=== PATIENT | female | born 1990 | race African-American/Black ===

== ENCOUNTER 2017-02-20 19:14 | Emergency (ER) | payer SELFPAY ==
[~2017-02-20] VITALS: Ht 167.6 cm; Wt 67.0 kg
[2017-02-20 22:10] VITALS: BP 129/61
== END 2017-02-20 22:52 | disposition home or self-care (01) ==
LOC: ER 19:15
DX: M25.561 Pain in right knee (principal); F17.210 Nicotine dependence, cigarettes, uncomplicated; F12.10 Cannabis abuse, uncomplicated
CPT/HCPCS: 81025; 93971; 99284; 99406

== ENCOUNTER 2017-12-23 18:42 | Emergency (ER) | payer MEDICAID, OTHER | END 2017-12-23 19:15 | disposition left against medical advice (07) | LOC: ER 18:51 | DX: Z53.21 Procedure and treatment not carried out due to patient leaving prior to being seen by health care provider (principal) ==

== ENCOUNTER 2018-10-29 00:13 | Emergency (ER) | payer MEDICAID ==
[~2018-10-29] VITALS: Ht 170.2 cm; Wt 73.0 kg
[2018-10-29 01:29] LABS: BASOPHILS % 0.5 % (0.0-2.0); EOSINOPHILS % 0.8 % (0.0-5.0); HEMATOCRIT. 40.3 % (36.0-48.0); HEMOGLOBIN. 13.6 g/dL (12.0-16.0); LYMPHOCYTES % 38.2 % (20.0-50.0); MEAN CORPUSCULAR HEMOGLOBIN 30.9 pg (28.0-32.0); MEAN CORPUSCULAR VOLUME 91.7 fL (81.0-99.0); MEAN PLATELET VOLUME 6.5 fl (7.4-10.4); MONOCYTES % 7.2 % (2.0-8.0); NEUTROPHILS % 53.3 % (40.0-76.0); PLATELET 428 x1000/uL (130-400); RED BLOOD CELL COUNT 4.39 mill/uL (4.2-5.4); RED CELL DISTRIBUTION WIDTH 14.1 % (11.6-14.6)
[2018-10-29 01:33] LABS: CHLORIDE 106 mEq/L (98-107)
[2018-10-29 02:02] LABS: ETHANOL BLOOD 425 mg/dL
[2018-10-29 05:03] VITALS: BP 123/94
== END 2018-10-29 09:13 | disposition home or self-care (01) ==
LOC: ER 00:13
DX: F10.121 Alcohol abuse with intoxication delirium (principal); Y90.8 Blood alcohol level of 240 mg/100 ml or more; E87.6 Hypokalemia; D47.3 Essential (hemorrhagic) thrombocythemia
CPT/HCPCS: 36415; 80053; 85025; 99283; G0482

== ENCOUNTER 2025-02-08 14:46 | Emergency (ER) | payer MEDICAID ==
[~2025-02-08] VITALS: Ht 167.6 cm; Wt 99.0 kg
[2025-02-08 14:56] VITALS: BP 144/97; TEMP 36.6; O2SAT 98
[2025-02-08 14:57] VITALS: PULSE 81; RESP 18; O2SAT 100
[2025-02-08 15:42] LABS: BASOPHILS % 1.1 % (0.0-2.0); EOSINOPHILS % 0.1 % (0.0-5.0); HEMOGLOBIN. 13.5 g/dL (12.0-16.0); LYMPHOCYTES % 23.2 % (20.0-50.0); MEAN CORPUSCULAR HEMOGLOBIN 29.2 pg (28.0-32.0); MEAN CORPUSCULAR HGB CONC 32.8 g/dL (31.0-37.0); MEAN PLATELET VOLUME 6.7 fl (7.4-10.4); MONOCYTES % 11.7 % (2.0-8.0); NEUTROPHILS % 63.9 % (40.0-76.0); PLATELET 438 x1000/uL (130-400); RED BLOOD CELL COUNT 4.61 mill/uL (4.2-5.4); RED CELL DISTRIBUTION WIDTH 14.6 % (11.6-14.6); WHITE BLOOD COUNT 6.8 x1000/uL (4.5-11.0)
[2025-02-08 15:46] LABS: CHLORIDE 98 mEq/L (98-107); POTASSIUM 3.9 mEq/L (3.5-5.1); SODIUM 133 mEq/L (136-145)
[2025-02-08 15:47] LABS: CARBON DIOXIDE 21 mEq/L (21-32)
[2025-02-08 15:48] LABS: CALCIUM 10.1 mg/dL (8.7-10.4)
[2025-02-08 15:52] LABS: CREATININE 0.7 mg/dL (0.6-1.0); ETHANOL BLOOD 10 mg/dL (<10); GLUCOSE 101 mg/dL (70-105)
[2025-02-08 15:53] LABS: UREA NITROGEN BLOOD 6 mg/dL (9-23)
[2025-02-08 15:54] LABS: ALANINE AMINOTRANSFERASE 37 IU/L (10-49); ASPARTATE AMINOTRANSFERASE 24 IU/L (<34); HCG SCREEN NEGATIVE
[2025-02-08 15:55] LABS: BILIRUBIN TOTAL 0.5 mg/dL (0.1-1.0); PROTEIN TOTAL 8.9 g/dL (6.0-8.3)
[2025-02-08 17:09] LABS: CLARITY URINE CLOUDY (CLEAR); COLOR URINE DARK YELLOW (YELLOW); GLUCOSE URINE NEGATIVE (NEGATIVE); KETONES URINE TRACE (NEGATIVE); LEUKOCYTE ESTERASE URINE TRACE (NEGATIVE); NITRITE URINE NEGATIVE (NEGATIVE); OCCULT BLOOD URINE NEGATIVE (NEGATIVE); PROTEIN URINE 1+ (NEGATIVE); SPECIFIC GRAVITY URINE 1.021 (1.005-1.030)
[2025-02-08 17:49] LABS: BACTERIA URINE TRACE; RBC URINE NONE SEEN /hpf (0-2); SQUAMOUS EPITHELIAL CELL URINE 1+ /lpf (RARE/1+)
== END 2025-02-08 17:03 | disposition left against medical advice (07) ==
LOC: ER 14:46
DX: R53.1 Weakness (principal); R42 Dizziness and giddiness; Z53.21 Procedure and treatment not carried out due to patient leaving prior to being seen by health care provider
CPT/HCPCS: 36415; 80053; 80320; 81003; 81025; 84703; 85025; 93005; 99284; G0480

== ENCOUNTER 2025-02-08 22:34 | Emergency (ER) | payer MEDICAID ==
[~2025-02-08] VITALS: Ht 177.8 cm; Wt 91.0 kg
[2025-02-08 22:44] VITALS: BP 144/92; PULSE 96; RESP 18; TEMP 36.9; O2SAT 99
== END 2025-02-09 00:56 | disposition left against medical advice (07) ==
LOC: ER 22:34
DX: F10.129 Alcohol abuse with intoxication, unspecified (principal); Z53.21 Procedure and treatment not carried out due to patient leaving prior to being seen by health care provider; Y90.9 Presence of alcohol in blood, level not specified

== ENCOUNTER 2025-02-25 08:34 | Emergency (ER) | payer MEDICAID, OTHER ==
[~2025-02-25] VITALS: Ht 172.7 cm; Wt 78.0 kg
[2025-02-25 09:11] LABS: BASOPHILS % 0.3 % (0.0-2.0); EOSINOPHILS % 0.2 % (0.0-5.0); HEMATOCRIT. 38.5 % (36.0-48.0); HEMOGLOBIN. 12.6 g/dL (12.0-16.0); LYMPHOCYTES % 22.2 % (20.0-50.0); MEAN CORPUSCULAR HEMOGLOBIN 29.2 pg (28.0-32.0); MEAN CORPUSCULAR HGB CONC 32.7 g/dL (31.0-37.0); MEAN CORPUSCULAR VOLUME 89.4 fL (81.0-99.0); MEAN PLATELET VOLUME 6.5 fl (7.4-10.4); MONOCYTES % 6.6 % (2.0-8.0); NEUTROPHILS % 70.7 % (40.0-76.0); PLATELET 429 x1000/uL (130-400); RED CELL DISTRIBUTION WIDTH 15.1 % (11.6-14.6); WHITE BLOOD COUNT 15.9 x1000/uL (4.5-11.0)
[2025-02-25 09:17] LABS: CHLORIDE 103 mEq/L (98-107); SODIUM 140 mEq/L (136-145)
[2025-02-25 09:19] LABS: CALCIUM 9.2 mg/dL (8.7-10.4); CARBON DIOXIDE 22 mEq/L (21-32)
[2025-02-25 09:20] LABS: POTASSIUM 2.8 mEq/L (3.5-5.1)
[2025-02-25 09:24] LABS: CREATININE 0.6 mg/dL (0.6-1.0); GLUCOSE 128 mg/dL (70-105)
[2025-02-25 09:25] LABS: ETHANOL BLOOD 186 mg/dL (<10)
[2025-02-25 09:26] LABS: ALANINE AMINOTRANSFERASE 28 IU/L (10-49); ALBUMIN 4.7 g/dL (3.2-4.8); ASPARTATE AMINOTRANSFERASE 28 IU/L (<34)
[2025-02-25 09:27] LABS: BILIRUBIN TOTAL 0.3 mg/dL (0.1-1.0); PROTEIN TOTAL 8.4 g/dL (6.0-8.3)
[2025-02-25 09:57] LABS: BILIRUBIN DIRECT < 0.1 mg/dL (<=3.0); PROTHROMBIN TIME 10.9 sec (9.6-11.0); UREA NITROGEN BLOOD < 5 mg/dL (9-23)
[2025-02-25] MEDS: SODIUM CHLORIDE 0.9% 1,000 ML IV ONE (10:02)
[2025-02-25] MEDS: MIDAZOLAM HCL 2 MG/2 ML VIAL IV ONE ×2 (10:02→10:17)
[2025-02-25] MEDS: KCL 20MEQ/100ML PREMIX 100 ML IV SCH (10:02)
[2025-02-25] MEDS: ONDANSETRON 4MG ODT PO ONE (10:02)
[2025-02-25 10:17] VITALS: O2SAT 98
[2025-02-25] MEDS: OLANZAPINE 10 MG/VIAL IM ONE (10:17)
[2025-02-25 10:22] LABS: TROPONIN I HIGH SENSITIVITY 4 ng/L (3.0-34)
[2025-02-25 10:23] LABS: CLARITY URINE CLOUDY (CLEAR); COLOR URINE YELLOW (YELLOW); GLUCOSE URINE NEGATIVE (NEGATIVE); KETONES URINE 2+ (NEGATIVE); LEUKOCYTE ESTERASE URINE NEGATIVE (NEGATIVE); NITRITE URINE NEGATIVE (NEGATIVE); OCCULT BLOOD URINE TRACE (NEGATIVE); PH URINE 6.5 (4.5-8.0); PROTEIN URINE 1+ (NEGATIVE); SPECIFIC GRAVITY URINE 1.012 (1.005-1.030)
[2025-02-25 10:27] LABS: UCG SCREEN NEGATIVE
[2025-02-25] MEDS: MAGNESIUM 1 G PREMIX 100 ML IV ONE (10:41)
[2025-02-25 10:49] LABS: SQUAMOUS EPITHELIAL CELL URINE 2+ /lpf (RARE/1+)
[2025-02-25 10:50] LABS: BACTERIA URINE TRACE
[2025-02-25 10:51] LABS: MUCUS URINE TRACE /lpf (< = 2+); RBC URINE 0-2 /hpf (0-2)
[2025-02-25 10:53] LABS: *AMPHETAMINES SCREEN URINE NEGATIVE (NEGATIVE); *BARBITURATES SCREEN URINE NEGATIVE (NEGATIVE); *BENZODIAZEPINES SCREEN URINE NEGATIVE (NEGATIVE); *COCAINE SCREEN URINE NEGATIVE (NEGATIVE); METHADONE URINE SCREEN NEGATIVE (NEGATIVE)
[2025-02-25 10:54] LABS: CANNABINOID URINE SCREEN PRESUMPTIVE POSITIVE (NEGATIVE); ECSTASY MDMA SCREEN URINE NEGATIVE (NEGATIVE); OPIATES URINE SCREEN NEGATIVE (NEGATIVE); PHENCYCLIDINE URINE SCREEN NEGATIVE (NEGATIVE)
[2025-02-25 12:08] LABS: CHLORIDE 104 mEq/L (98-107); POTASSIUM 3.1 mEq/L (3.5-5.1); SODIUM 140 mEq/L (136-145)
[2025-02-25 12:09] LABS: CARBON DIOXIDE 24 mEq/L (21-32)
[2025-02-25 12:10] LABS: CALCIUM 8.7 mg/dL (8.7-10.4)
[2025-02-25 12:14] LABS: CREATININE 0.6 mg/dL (0.6-1.0); GLUCOSE 101 mg/dL (70-105)
[2025-02-25 12:15] LABS: UREA NITROGEN BLOOD < 5 mg/dL (9-23)
[2025-02-25 12:16] LABS: ALANINE AMINOTRANSFERASE 24 IU/L (10-49); ALBUMIN 4.2 g/dL (3.2-4.8); ASPARTATE AMINOTRANSFERASE 23 IU/L (<34)
[2025-02-25 12:17] LABS: BILIRUBIN TOTAL 0.2 mg/dL (0.1-1.0); PROTEIN TOTAL 7.5 g/dL (6.0-8.3)
[2025-02-25 22:58] LABS: HCG SCREEN NEGATIVE
[2025-02-26] MEDS: LORAZEPAM 1MG TABLET PO ONE (00:53)
[2025-02-26 06:00] VITALS: TEMP 36.9
[2025-02-26 08:00] VITALS: BP 120/64; PULSE 78; RESP 16; O2SAT 100
== END 2025-02-26 09:58 | disposition home or self-care (01) ==
LOC: ER 09:50 → CANBEDREQ 10:29 → ER 02-26 09:58
DX: R45.851 Suicidal ideations (principal); F10.129 Alcohol abuse with intoxication, unspecified; F20.9 Schizophrenia, unspecified; Z79.899 Other long term (current) drug therapy; Z78.1 Physical restraint status; Z20.822 Contact with and (suspected) exposure to COVID-19; Y90.6 Blood alcohol level of 120-199 mg/100 ml
CPT/HCPCS: 80076; 80053; 80305; 80048; 81003; 81025; 80307; 80329; 80320; 84703; 83690; 83735; 85025; 85610; 84484; 36415; 93005; 96361; 96365; 96372; 96375; 99291; 87426; Q0162; J3490; J3475; J2250; J3480; J7030; Z7610 ×6; A4606; G0480

== ENCOUNTER 2025-03-21 09:59 | Emergency (ER) | payer OTHER ==
[~2025-03-21] VITALS: Ht 165.1 cm; Wt 98.0 kg
[2025-03-21 10:13] VITALS: O2SAT 98
[2025-03-21 10:40] VITALS: BP 158/102; PULSE 103; RESP 14; TEMP 37; O2SAT 98
[2025-03-21 10:44] LABS: BASOPHILS % 0.6 % (0.0-2.0); EOSINOPHILS % 0.7 % (0.0-5.0); HEMATOCRIT. 35.9 % (36.0-48.0); HEMOGLOBIN. 12.2 g/dL (12.0-16.0); LYMPHOCYTES % 41.8 % (20.0-50.0); MEAN CORPUSCULAR HEMOGLOBIN 30.1 pg (28.0-32.0); MEAN CORPUSCULAR HGB CONC 33.9 g/dL (31.0-37.0); MEAN CORPUSCULAR VOLUME 88.8 fL (81.0-99.0); MEAN PLATELET VOLUME 6.4 fl (7.4-10.4); MONOCYTES % 9.6 % (2.0-8.0); NEUTROPHILS % 47.3 % (40.0-76.0); PLATELET 412 x1000/uL (130-400); RED BLOOD CELL COUNT 4.04 mill/uL (4.2-5.4); RED CELL DISTRIBUTION WIDTH 17.3 % (11.6-14.6); WHITE BLOOD COUNT 5.6 x1000/uL (4.5-11.0)
[2025-03-21 10:49] LABS: CHLORIDE 105 mEq/L (98-107); POTASSIUM 3.1 mEq/L (3.5-5.1); SODIUM 140 mEq/L (136-145)
[2025-03-21 10:50] LABS: CALCIUM 8.9 mg/dL (8.7-10.4); CARBON DIOXIDE 24 mEq/L (21-32)
[2025-03-21 10:51] VITALS: TEMP 98.6
[2025-03-21] MEDS: ACETAMINOPHEN 325MG TABLET PO NR (10:51)
[2025-03-21] MEDS: SODIUM CHLORIDE 0.9% 1,000 ML IV ONE (10:51)
[2025-03-21] MEDS: METOCLOPRAMIDE HCL 10MG/2ML VIAL IV NR (10:51)
[2025-03-21 10:55] LABS: CREATININE 0.6 mg/dL (0.6-1.0); GLUCOSE 96 mg/dL (70-105); UREA NITROGEN BLOOD 7 mg/dL (9-23)
[2025-03-21 10:56] LABS: TROPONIN I HIGH SENSITIVITY < 4 ng/L (3.0-34)
[2025-03-21 10:57] LABS: ALANINE AMINOTRANSFERASE 26 IU/L (10-49); ALBUMIN 4.4 g/dL (3.2-4.8); ASPARTATE AMINOTRANSFERASE 43 IU/L (<34); BILIRUBIN DIRECT < 0.1 mg/dL (<=3.0); BILIRUBIN TOTAL 0.3 mg/dL (0.1-1.0); PROTEIN TOTAL 7.9 g/dL (6.0-8.3)
[2025-03-21 11:25] LABS: HCG SCREEN NEGATIVE
[2025-03-21 11:34] LABS: INR 1.1; PROTHROMBIN TIME 11.4 sec (9.6-11.0)
== END 2025-03-21 12:04 | disposition left against medical advice (07) ==
LOC: ER 09:59
DX: R11.2 Nausea with vomiting, unspecified (principal); R51.9 Headache, unspecified; F17.200 Nicotine dependence, unspecified, uncomplicated; I49.9 Cardiac arrhythmia, unspecified; Z53.21 Procedure and treatment not carried out due to patient leaving prior to being seen by health care provider
CPT/HCPCS: 99285; 96374; 70450; 71045; 96361; 80076; 80048; 84703; 83690; 85025; 85610; 84484; 36415; 93005; J2765

== ENCOUNTER 2025-05-25 21:12 | Emergency (ER) | payer MEDICAID, OTHER ==
[~2025-05-25] VITALS: Ht 167.6 cm; Wt 99.0 kg
[2025-05-25 21:19] VITALS: O2SAT 99
[2025-05-25] MEDS: LORAZEPAM 1MG TABLET PO ONE (22:45)
[2025-05-25 23:18] LABS: BASOPHILS % 0.6 % (0.0-2.0); EOSINOPHILS % 1.6 % (0.0-5.0); HEMATOCRIT. 34.6 % (36.0-48.0); HEMOGLOBIN. 11.6 g/dL (12.0-16.0); LYMPHOCYTES % 29.1 % (20.0-50.0); MEAN CORPUSCULAR HEMOGLOBIN 30.4 pg (28.0-32.0); MEAN CORPUSCULAR HGB CONC 33.7 g/dL (31.0-37.0); MEAN CORPUSCULAR VOLUME 90.2 fL (81.0-99.0); MEAN PLATELET VOLUME 6.2 fl (7.4-10.4); MONOCYTES % 8.7 % (2.0-8.0); PLATELET 594 x1000/uL (130-400); RED BLOOD CELL COUNT 3.83 mill/uL (4.2-5.4); RED CELL DISTRIBUTION WIDTH 13.9 % (11.6-14.6); WHITE BLOOD COUNT 9.7 x1000/uL (4.5-11.0)
[2025-05-25 23:35] LABS: CHLORIDE 103 mEq/L (98-107); POTASSIUM 3.4 mEq/L (3.5-5.1); SODIUM 138 mEq/L (136-145)
[2025-05-25 23:36] LABS: CALCIUM 9.7 mg/dL (8.7-10.4); CARBON DIOXIDE 21 mEq/L (21-32)
[2025-05-25 23:41] LABS: CREATININE 0.7 mg/dL (0.6-1.0); ETHANOL BLOOD < 10 mg/dL (<10); GLUCOSE 99 mg/dL (70-105); UREA NITROGEN BLOOD 8 mg/dL (9-23)
[2025-05-25 23:43] LABS: ACETAMINOPHEN < 2 ug/mL (10-30); ALANINE AMINOTRANSFERASE 25 IU/L (10-49); ALBUMIN 4.9 g/dL (3.2-4.8); ASPARTATE AMINOTRANSFERASE 18 IU/L (<34); BILIRUBIN TOTAL 0.3 mg/dL (0.1-1.0); PROTEIN TOTAL 8.1 g/dL (6.0-8.3)
[2025-05-26 01:11] LABS: HCG SCREEN NEGATIVE
[2025-05-26 01:20] LABS: CLARITY URINE CLEAR (CLEAR); COLOR URINE YELLOW (YELLOW); GLUCOSE URINE NEGATIVE (NEGATIVE); KETONES URINE TRACE (NEGATIVE); LEUKOCYTE ESTERASE URINE NEGATIVE (NEGATIVE); NITRITE URINE NEGATIVE (NEGATIVE); OCCULT BLOOD URINE NEGATIVE (NEGATIVE); PH URINE 6.5 (4.5-8.0); PROTEIN URINE 1+ (NEGATIVE); SPECIFIC GRAVITY URINE 1.022 (1.005-1.030); UROBILINOGEN URINE 0.2 E.U./dL (0.2-1.0)
[2025-05-26 01:29] LABS: *AMPHETAMINES SCREEN URINE NEGATIVE (NEGATIVE); *BARBITURATES SCREEN URINE NEGATIVE (NEGATIVE); *BENZODIAZEPINES SCREEN URINE NEGATIVE (NEGATIVE); *COCAINE SCREEN URINE NEGATIVE (NEGATIVE); CANNABINOID URINE SCREEN NEGATIVE (NEGATIVE); ECSTASY MDMA SCREEN URINE CONF.TEST INDICATED (NEGATIVE); METHADONE URINE SCREEN NEGATIVE (NEGATIVE); OPIATES URINE SCREEN NEGATIVE (NEGATIVE); PHENCYCLIDINE URINE SCREEN NEGATIVE (NEGATIVE)
[2025-05-26 03:32] LABS: SQUAMOUS EPITHELIAL CELL URINE 1+ /lpf (RARE/1+)
[2025-05-26 03:36] LABS: RBC URINE 0-2 /hpf (0-2)
[2025-05-26 03:38] LABS: BACTERIA URINE 1+
[2025-05-26] MEDS: RISPERIDONE 0.5MG TABLET PO SCH (10:29)
[2025-05-26 15:20] VITALS: BP 125/78; PULSE 80; RESP 14; TEMP 36.7; O2SAT 99
== END 2025-05-26 15:27 | disposition home or self-care (01) ==
LOC: ER 21:12
DX: R45.851 Suicidal ideations (principal); F41.9 Anxiety disorder, unspecified; F32.A Depression, unspecified; F20.0 Paranoid schizophrenia; Z20.822 Contact with and (suspected) exposure to COVID-19; Z79.899 Other long term (current) drug therapy
CPT/HCPCS: 36415; 80053; 80305; 80307; 80320; 80329; 81003; 81025; 84703; 85025; 87426; 99285; G0480

== ENCOUNTER 2025-06-05 16:32 | Emergency (ER) | payer OTHER ==
[~2025-06-05] VITALS: Ht 167.6 cm; Wt 100.0 kg
[2025-06-05 16:40] VITALS: O2SAT 100
[2025-06-05 18:16] LABS: CLARITY URINE CLEAR (CLEAR); COLOR URINE YELLOW (YELLOW); GLUCOSE URINE NEGATIVE (NEGATIVE); KETONES URINE TRACE (NEGATIVE); LEUKOCYTE ESTERASE URINE NEGATIVE (NEGATIVE); NITRITE URINE NEGATIVE (NEGATIVE); OCCULT BLOOD URINE NEGATIVE (NEGATIVE); PH URINE 6.5 (4.5-8.0); PROTEIN URINE NEGATIVE (NEGATIVE); SPECIFIC GRAVITY URINE 1.013 (1.005-1.030); UROBILINOGEN URINE 0.2 E.U./dL (0.2-1.0)
[2025-06-05] MEDS ORDERED: AMOX1TAB16 MT (18:43)
[2025-06-05 18:53] VITALS: BP 141/99; PULSE 88; RESP 18; TEMP 36.8; O2SAT 100
== END 2025-06-05 18:55 | disposition home or self-care (01) ==
LOC: ER 16:32
DX: K04.7 Periapical abscess without sinus (principal); F20.9 Schizophrenia, unspecified; F41.9 Anxiety disorder, unspecified; F32.A Depression, unspecified
CPT/HCPCS: 81003; 99283

== ENCOUNTER 2025-09-30 15:29 | Emergency (ER) | payer MEDICAID, OTHER ==
[~2025-09-30] VITALS: Ht 167.6 cm; Wt 99.0 kg
[~2025-09-30 15:29] MED LIST: AMOX1TAB16 MT
[2025-09-30 15:34] VITALS: O2SAT 99
[2025-09-30] MEDS: KETOROLAC 15MG/ML VIAL IM ONE (18:21)
[2025-09-30] MEDS: LIDOCAINE HCL 1% 20ML VIAL INFIL ONE (19:20)
[2025-09-30] MEDS ORDERED: NAPR-1176 MT (20:13)
[2025-09-30] MEDS ORDERED: AMOX1TAB16 MT (20:13)
[2025-09-30 20:18] VITALS: BP 135/72; PULSE 80; RESP 20; TEMP 37.1; O2SAT 99
== END 2025-09-30 20:20 | disposition home or self-care (01) ==
LOC: ER 15:29
DX: K04.7 Periapical abscess without sinus (principal); F41.9 Anxiety disorder, unspecified; F32.A Depression, unspecified; F20.9 Schizophrenia, unspecified; Z79.1 Long term (current) use of non-steroidal anti-inflammatories (NSAID)
CPT/HCPCS: 41800; 96372; 99284; J1885; J2003; Z7610 ×4; 10060; 99283